=== PATIENT | female | born 1960 | race Caucasian/White ===

== ENCOUNTER 2019-02-06 09:41 | Outpatient (CLI) | payer BC ==
[2019-02-06 12:27] LABS: ALT (SGPT) 14 U/L (8-55); AST (SGOT) 17 U/L (5-34); Albumin 4.5 g/dL (3.5-5.0); Alkaline Phosphatase 87 U/L (40-150); Bilirubin, Direct 0.2 mg/dL (0.1-0.3); Bilirubin, Total 0.6 mg/dL (0.2-1.2); Protein, Total 7.2 g/dL (6.0-8.3)
== END 2019-02-06 09:42 | disposition home or self-care (01) ==
LOC: LABBT 09:41
PROVIDERS: ATTEND Surgery
DX: Z01.818 Encounter for other preprocedural examination (principal); K80.20 Calculus of gallbladder without cholecystitis without obstruction
CPT/HCPCS: 80076; 93005; 93010

== ENCOUNTER 2019-02-08 06:58 | Day surgery (SDC) | payer BC ==
[2019-02-06 10:13] VITALS: BMI 24.5
[2019-02-08] MEDS ORDERED: Bupivacaine/Epinephrine 0.25% 30 ML VIAL ONE (08:37)
[2019-02-08] MEDS ORDERED: Fentanyl 100 MCG/2 ML VIAL ONE ×2 (08:56)
[2019-02-08] MEDS ORDERED: Midazolam HCl 2 mg/2 ml Vial ONE (08:56)
[2019-02-08] MEDS ORDERED: cefOXitin 2 GM VIAL ONE (08:59)
[2019-02-08] MEDS ORDERED: Sodium Chloride 0.9% 100 ML ONE (09:00)
--- NOTE | 2019-02-08 13:48 | OP ---
DATE OF PROCEDURE: 02/08/2019 PREOPERATIVE DIAGNOSIS: Symptomatic cholelithiasis. PROCEDURE PERFORMED: Laparoscopic cholecystectomy. INDICATIONS: A 58-year-old female, who has been having severe epigastric pain to the back. Ultrasound showed cholelithiasis. FINDINGS: She had hydrops of the gallbladder with multiple large stones, small caliber cystic duct, distention of the gallbladder. DESCRIPTION OF PROCEDURE: After informed consent was obtained, the patient was taken to the operating room, given general endotracheal anesthesia, placed in the supine position. Abdomen was prepped and draped in usual fashion. Local anesthesia was infiltrated subcutaneously and deep. A subumbilical incision was performed. Subcu divided sharply. The fascia grasped and 2 stay sutures of 0 Vicryl placed on each side of midline. Midline incised. Digital palpation revealed no local adhesions. A blunt 12 mm trocar inserted, pneumoperitoneum was created to a pressure of 15 mmHg. A 0-degree laparoscope was inserted under direct vision. Three 5 mm ports were placed subcostally. Gallbladder was distended. It was grasped, advanced superiorly, peritoneum dissected distally to dissect out the cystic duct and cystic artery in critical view. The duct and artery were triply ligated with hemoclips and divided. The gallbladder removed from its fossa utilizing electrocautery, removed from the abdomen through the umbilical port, and sent to Pathology for further analysis. Hemostasis achieved with electrocautery. The abdomen irrigated. Irrigation fluid removed. Trocars and retractors removed. The fascia closed with interrupted 0 Vicryl suture. The skin closed with interrupted 4-0 Rapide. Dermabond applied. The patient tolerated the procedure well, transferred to Recovery in good condition. Sponge and needle count verified correct x2. Job ID: [id number]
[2019-02-08] MEDS ORDERED: Ketorolac Tromethamine 30 MG/ML VIAL ONE (14:52)
[2019-02-08] MEDS ORDERED: ePHEDrine 50 MG/ML VIAL ONE (14:52)
[2019-02-08] MEDS ORDERED: PROPOFOL 200 MG/20 ML VIAL ONE (14:52)
[2019-02-08] MEDS ORDERED: Glycopyrrolate 0.2 MG/ML 5 ML SYRINGE ONE (14:52)
[2019-02-08] MEDS ORDERED: Ondansetron PF 4 MG/2 ML Vial ONE (14:52)
[2019-02-08] MEDS ORDERED: Rocuronium Bromide 10 MG/ML (10ML VIAL) ONE (14:52)
[2019-02-08] MEDS ORDERED: Lidocaine 1% PF 5 ML VIAL ONE (14:52)
== END 2019-02-08 12:10 | disposition home or self-care (01) ==
LOC: SDC 06:58
PROVIDERS: ATTEND Surgery
PROC: 0FT44ZZ Resection of Gallbladder, Percutaneous Endoscopic Approach (ICD-10-PCS; principal; 2019-02-08)
DX: K80.10 Calculus of gallbladder with chronic cholecystitis without obstruction (principal); Z79.899 Other long term (current) drug therapy; Z88.5 Allergy status to narcotic agent
CPT/HCPCS: 88304; J0694; J2250; J3010; J3490

== ENCOUNTER 2019-02-09 09:08 | Emergency (ER) | payer BC ==
[2019-02-09 10:07] LABS: Bilirubin Negative (Negative); Blood, Urine Trace (Negative); Clarity Slightly Cloudy (Clear); Glucose, Urine (Dipstick) Negative (Negative); Leukocyte Negative (Negative); Nitrite Negative (Negative); Protein, Urine (Dipstick) Negative (Neg-Trace); Urobilinogen 0.2 mg/dL (Less than 2)
[2019-02-09 10:14] LABS: Bacteria/HPF None Seen HPF (None Seen); Epithelial Cast None Seen LPF (None Seen); RBC/HPF 0-3 HPF (0-3); Squamous Epithelial None Seen HPF (0-3); WBC/HPF None Seen HPF (0-3)
== END 2019-02-09 10:08 | disposition home or self-care (01) ==
LOC: SCSER 09:08
DX: R33.9 Retention of urine, unspecified (principal)
CPT/HCPCS: 51701; 81003; 81015

== ENCOUNTER 2019-11-05 10:00 | Outpatient (CLI) | payer BC ==
--- NOTE | 2019-11-05 10:40 | ULT ---
Pelvic sonogram transabdominal and transvaginal imaging HISTORY: Pelvic pain. FINDINGS: Urinary bladder is incompletely distended. No focal lesion. Uterus and ovaries are surgically absent. No pelvic mass or free fluid visible. IMPRESSION : Status post hysterectomy. No abnormalities are demonstrated.
== END 2019-11-05 10:01 | disposition home or self-care (01) ==
LOC: SCSULT 10:00
PROVIDERS: ATTEND Family Medicine
DX: R10.2 Pelvic and perineal pain (principal); Z90.710 Acquired absence of both cervix and uterus
CPT/HCPCS: 76856

== ENCOUNTER 2020-11-05 15:58 | Outpatient (CLI) | payer BC ==
[2020-11-05 18:29] LABS: #Basophils 0.1 10x3/uL (0.0-0.2); #Eosinphils 0.3 10x3/uL (0.0-0.5); #Monocytes 0.6 10x3/uL (0.0-1.1); #Neutrophils 4.6 10x3/uL (1.5-8.4); %Basophils 0.7 % (0.0-2.0); %Eosinophils 3.7 % (0.0-6.0); %Lymphocytes 26.4 % (18.0-47.0); %Monocytes 7.3 % (0.0-10.0); %Neutrophils 61.4 % (40.0-75.0); Hemoglobin 13.3 g/dL (12.0-15.5); Mean Corpuscular HGB CONC 33.9 g/dL (32.0-36.0); Mean Corpuscular Hemoglobin 31.5 pg (27.0-33.0); Mean Corpuscular Volume 92.9 fl (81.6-98.3); Mean Platelet Volume 11.2 fl (7.4-10.4); Platelet Count 275 10x3/uL (150-450); RBC Distribution Width 12.6 % (11.5-14.5); Red Blood Cell (RBC) Count 4.22 10x6/uL (3.90-5.03); White Blood Cell (WBC) Count 7.5 10x3/uL (3.5-10.5)
[2020-11-05 18:38] LABS: ALT (SGPT) 13 U/L (8-55); AST (SGOT) 22 U/L (5-34); Albumin 4.4 g/dL (3.5-5.0); Alkaline Phosphatase 84 U/L (40-110); Anion Gap 12 mmol/L (10-20); BUN (Urea Nitrogen) 11 mg/dL (9.8-20.1); Bilirubin, Total 0.5 mg/dL (0.2-1.2); Calc. Creatinine Clearance 0 mL/min (70-130); Calcium 9.6 mg/dL (7.8-10.44); Carbon Dioxide 27 mmol/L (22-29); Chloride 105 mmol/L (98-107); Globulin 2.6 g/dL (2.4-3.5); Glucose 65 mg/dL (70-105); Potassium 4.3 mmol/L (3.5-5.1); Sodium 140 mmol/L (136-145)
[2020-11-06 01:06] LABS: SARS-CoV-2 PCR by NAA Not Detected (NotDetected)
== END 2020-11-05 15:59 | disposition home or self-care (01) ==
LOC: LABBT 15:58
PROVIDERS: ATTEND Surgery
DX: Z01.818 Encounter for other preprocedural examination (principal); D17.1 Benign lipomatous neoplasm of skin and subcutaneous tissue of trunk; Z20.822 Contact with and (suspected) exposure to COVID-19
CPT/HCPCS: 80053; 85025; 87635; 93005; 93010; U0003; U0005

== ENCOUNTER 2020-11-10 05:59 | Day surgery (SDC) | payer BC ==
[2020-11-07 10:38] VITALS: BMI 25.4
[2020-11-10] MEDS ORDERED: Fentanyl 100 MCG/2 ML VIAL ONE (06:19)
[2020-11-10] MEDS ORDERED: Lidocaine 1% w/Epinephrine 1:100K 20 ML VIAL ONE (06:45)
[2020-11-10] MEDS ORDERED: Bupivacaine 0.25% HCL 30 ML VIAL ONE (06:45)
[2020-11-10] MEDS ORDERED: PROPOFOL 200 MG/20 ML VIAL ONE (07:33)
[2020-11-10] MEDS ORDERED: Lidocaine 1% PF 5 ML VIAL ONE (07:33)
[2020-11-10] MEDS ORDERED: Succinylcholine 200 MG/10 ml SYRINGE FS ONE (07:33)
[2020-11-10] MEDS ORDERED: Rocuronium Bromide 10 MG/ML (10ML VIAL) ONE (07:33)
[2020-11-10] MEDS ORDERED: ePHEDrine Sulfate 50 MG/10 ML VIAL ONE (07:33)
[2020-11-10] MEDS ORDERED: Dexamethasone 20 MG/5 ML VIAL ONE (07:33)
[2020-11-10] MEDS ORDERED: Ondansetron PF 4 MG/2 ML Vial ONE (07:33)
== END 2020-11-10 09:36 | disposition home or self-care (01) ==
LOC: SDC 05:59
PROVIDERS: ATTEND Surgery
PROC: 0JB70ZZ Excision of Back Subcutaneous Tissue and Fascia, Open Approach (ICD-10-PCS; principal; 2020-11-10)
DX: D17.1 Benign lipomatous neoplasm of skin and subcutaneous tissue of trunk (principal); Z88.5 Allergy status to narcotic agent
CPT/HCPCS: 88304; J0690; J1100; J2405; J2704; J3010; S0020

== ENCOUNTER 2020-11-12 07:35 | Day surgery (SDC) | payer BC ==
[2020-11-11 09:43] VITALS: BMI 25.1
[2020-11-12] MEDS ORDERED: Lidocaine 1% w/Epinephrine 1:100K 20 ML VIAL ONE (08:07)
[2020-11-12] MEDS ORDERED: Propofol 500 MG/50 ML VIAL ONE (08:24)
[2020-11-12] MEDS ORDERED: Fentanyl 100 MCG/2 ML VIAL ONE (08:24)
[2020-11-12] MEDS ORDERED: ePHEDrine Sulfate 50 MG/10 ML VIAL ONE (08:36)
[2020-11-12] MEDS ORDERED: Lidocaine 1% PF 5 ML VIAL ONE (08:36)
[2020-11-12] MEDS ORDERED: PROPOFOL 200 MG/20 ML VIAL ONE (08:36)
== END 2020-11-12 10:15 | disposition home or self-care (01) ==
LOC: SDC 07:35
PROVIDERS: ATTEND Neurological Surgery
PROC: 01N50ZZ Release Median Nerve, Open Approach (ICD-10-PCS; principal; 2020-11-12)
DX: G56.02 Carpal tunnel syndrome, left upper limb (principal); J30.2 Other seasonal allergic rhinitis; Z88.5 Allergy status to narcotic agent
CPT/HCPCS: J0690; J2704; J3010

== ENCOUNTER 2022-06-15 14:27 | Outpatient (CLI) | payer BC | END 2022-06-15 14:28 | disposition home or self-care (01) | LOC: SCSMRI 14:27 | PROVIDERS: ATTEND Orthopaedic Surgery Hand Surgery | DX: M85.642 Other cyst of bone, left hand (principal); M65.842 Other synovitis and tenosynovitis, left hand ==

== ENCOUNTER 2022-09-23 08:43 | Outpatient (CLI) | payer BC | END 2022-09-23 08:44 | disposition home or self-care (01) | LOC: SCSMRI 08:43 | PROVIDERS: ATTEND Orthopaedic Surgery | DX: M23.91 Unspecified internal derangement of right knee (principal) ==

== ENCOUNTER 2025-05-02 09:04 | Outpatient (CLI) | payer BC | END 2025-05-02 09:05 | disposition home or self-care (01) | LOC: SCSRAD 09:04 | PROVIDERS: ATTEND Family Medicine | DX: M46.1 Sacroiliitis, not elsewhere classified (principal); M51.369 Other intervertebral disc degeneration, lumbar region without mention of lumbar back pain or lower extremity pain; M47.816 Spondylosis without myelopathy or radiculopathy, lumbar region | CPT/HCPCS: 72110 ==